=== PATIENT | female | born 1980 | race Two or more races ===

== ENCOUNTER 2019-04-10 17:47 | Emergency (ER) | payer MEDICAID ==
[~2019-04-10] VITALS: Ht 162.6 cm; Wt 90.7 kg
[2019-04-10 17:59] VITALS: BP 128/77
== END 2019-04-10 21:09 | disposition left against medical advice (07) ==
LOC: ER 17:51
DX: G43.909 Migraine, unspecified, not intractable, without status migrainosus (principal); Z53.21 Procedure and treatment not carried out due to patient leaving prior to being seen by health care provider
CPT/HCPCS: 70450

== ENCOUNTER 2019-10-03 14:43 | Emergency (ER) | payer MEDICAID ==
[~2019-10-03] VITALS: Ht 162.6 cm; Wt 90.3 kg
[2019-10-03] MEDS ORDERED: ACETAMINOPHEN 325 MG TAB PO ONE ×2 (15:34→16:30)
[2019-10-03 15:38] VITALS: BP 114/72
== END 2019-10-03 17:05 | disposition home or self-care (01) ==
LOC: ER 14:43
DX: S00.83XA Contusion of other part of head, initial encounter (principal); V43.52XA Car driver injured in collision with other type car in traffic accident, initial encounter; Y93.89 Activity, other specified; Y92.488 Other paved roadways as the place of occurrence of the external cause; Y99.8 Other external cause status
CPT/HCPCS: 72125